=== PATIENT | male | born 1980 | race Caucasian/White ===

== ENCOUNTER 2020-11-28 08:06 | Outpatient (REF) | payer OTHER, SELFPAY ==
[2020-11-28 11:10] LABS: Alanine Aminotransferase 59 U/L (0-40); Anion Gap 12 (12-20); Blood Urea Nitrogen 13 mg/dL (9-16); Carbon Dioxide 26 mmol/L (22-29); Chloride 104 mmol/L (96-108); Estimated Glomerular Filt Rate > 60; Potassium 4.3 mmol/L (3.3-5.1); Sodium 138 mmol/L (135-145)
== END 2020-11-28 08:07 | disposition home or self-care (01) ==
LOC: HO.10HDL 08:06
PROVIDERS: Visit Provider Family Medicine
DX: I10 Essential (primary) hypertension (principal); K75.81 Nonalcoholic steatohepatitis (NASH)
CPT/HCPCS: 36415; 80051; 82565; 84460; 84520

== ENCOUNTER 2021-03-29 14:49 | Emergency (ER) | payer OTHER, SELFPAY ==
--- NOTE | 2021-03-29 | ECG_ITS ---
Test Reason : HIT LIGHTNING Blood Pressure : / mmHG Vent. Rate : 068 BPM Atrial Rate : 068 BPM P-R Int : 176 ms QRS Dur : 114 ms QT Int : 404 ms P-R-T Axes : 042 002 009 degrees QTc Int : 429 ms Normal sinus rhythm Cannot rule out Anterior infarct , age undetermined Abnormal ECG When compared with ECG of 03-SEP-2019 17:43, No significant change was found Referred By: Generic ED Physician Electronically Signed By:Baldomero Macario
[2021-03-29 15:03] VITALS: BP 139/93; PULSE 73; RESP 18; TEMP 36.5; O2SAT 96; BMI 33.7
[2021-03-29] MEDS: Ibuprofen 600 MG TABLET PO (15:36)
[2021-03-29 15:46] LABS: Hematocrit 43.5 % (42-52); Hemoglobin 15.2 g/dl (14.0-18.0); Mean Corpuscular HGB Conc 34.9 g/dl (31.0-36.0); Mean Corpuscular Hemoglobin 29.3 pg (27.0-33.0); Mean Corpuscular Volume 83.8 fL (80-98); Mean Platelet Volume 10.3 fL (9.4-12.4); Platelet Count 190 X10*3/uL (160-400); Red Blood Count 5.19 X10*6/uL (4.60-5.80); Red Cell Distribution Width 12.7 % (11.0-16.0); White Blood Count 7.3 X10*3/uL (4.8-10.8)
--- NOTE | 2021-03-29 15:47 | PC.NURSE ---
ekg was performed/documented but the red ekg marker on tracker continues to show red. pt also medicated with ibuprofen for pain.
[2021-03-29 16:16] LABS: Anion Gap 12 (12-20); Blood Urea Nitrogen 13 mg/dL (9-16); Calcium 9.3 mg/dL (8.4-10.2); Carbon Dioxide 25 mmol/L (22-29); Chloride 107 mmol/L (96-108); Creatinine Clr Calc Pharmacy 127.7; Estimated Glomerular Filt Rate > 60; Glucose Random 123 mg/dL (60-115); Potassium 3.8 mmol/L (3.3-5.1); Sodium 140 mmol/L (135-145)
--- NOTE | 2021-03-29 18:26 | PC.NURSE ---
pt stated to this nurse that he no longer wanted to wait to be seen and that he would go to his doctor, this nurse encouraged patient to stay but he did not wish to stay any longer.
== END 2021-03-29 19:10 | disposition left against medical advice (07) ==
PROVIDERS: Emergency Provider Emergency Medicine; PCP Family Medicine
DX: T75.09XA Other effects of lightning, initial encounter (principal); H53.8 Other visual disturbances; R51.9 Headache, unspecified; Y93.9 Activity, unspecified; Y92.821 Forest as the place of occurrence of the external cause; Y99.8 Other external cause status
CPT/HCPCS: 36415; 80048; 85027; 93005; 99283

== ENCOUNTER 2021-04-01 06:24 | Outpatient (REF) | payer OTHER, SELFPAY ==
[2021-04-07 01:37] LABS: Aldolase 6.3 U/L (<=8.1)
== END 2021-04-01 06:25 | disposition home or self-care (01) ==
LOC: HO.LAB 06:24
PROVIDERS: PCP Family Medicine; Visit Provider Family Medicine
DX: M79.10 Myalgia, unspecified site (principal)
CPT/HCPCS: 36415; 82085; 82550

== ENCOUNTER 2022-05-15 08:13 | Outpatient (REF) | payer OTHER, SELFPAY ==
[2022-05-15 09:55] LABS: Anion Gap 16 (12-20); Blood Urea Nitrogen 17 mg/dL (9-16); Carbon Dioxide 24 mmol/L (22-29); Chloride 108 mmol/L (96-108); Estimated Glomerular Filt Rate > 60; Potassium 4.8 mmol/L (3.3-5.1); Sodium 143 mmol/L (135-145)
== END 2022-05-15 08:14 | disposition home or self-care (01) ==
LOC: HO.LAB 08:13
PROVIDERS: PCP Family Medicine; Visit Provider Family Medicine
DX: I10 Essential (primary) hypertension (principal)
CPT/HCPCS: 36415; 80051; 82565; 84520

== ENCOUNTER 2023-02-12 07:03 | Outpatient (REF) | payer BC, SELFPAY ==
[2023-02-12 07:59] LABS: Alanine Aminotransferase 98 U/L (0-40); Anion Gap 12 (12-20); Aspartate Amino Transferase 39 U/L (5-37); Blood Urea Nitrogen 20 mg/dL (9-16); Carbon Dioxide 24 mmol/L (22-29); Chloride 109 mmol/L (96-108); Estimated Glomerular Filt Rate > 60; Potassium 4.3 mmol/L (3.3-5.1); Sodium 141 mmol/L (135-145)
== END 2023-02-12 07:04 | disposition home or self-care (01) ==
LOC: HO.LAB 07:03
PROVIDERS: PCP Family Medicine; Visit Provider Family Medicine
DX: I10 Essential (primary) hypertension (principal); K75.81 Nonalcoholic steatohepatitis (NASH)
CPT/HCPCS: 36415; 80051; 82565; 84450; 84460; 84520

== ENCOUNTER 2023-04-20 13:11 | Outpatient (REF) | payer BC, SELFPAY ==
[2023-04-20 13:47] LABS: IDNOW Serial# 08D9AD1C; Strep A Nucleic Acid Negative (Negative)
== END 2023-04-20 13:12 | disposition home or self-care (01) ==
LOC: HO.LNP 13:11
PROVIDERS: Visit Provider Family Medicine
DX: J02.9 Acute pharyngitis, unspecified (principal)
CPT/HCPCS: 87651

== ENCOUNTER 2023-04-21 02:16 | Emergency (ER) | payer BC, SELFPAY ==
[2023-04-21 02:36] VITALS: BP 176/117; PULSE 75; RESP 18; TEMP 37; O2SAT 96; BMI 35.2
--- NOTE | 2023-04-21 03:25 | ED_ITS ---
HPI - General Adult General Chief complaint: General Medical Stated complaint: trouble swallowing Time Seen by Provider: 04/21/23 03:24 Source: patient Mode of arrival: ambulatory Limitations: no limitations History of Present Illness HPI narrative: 42-year-old male who presents emergency department for evaluation of sore throat difficulty swallowing. Patient states that he has been sick for approximately 2 days. He states that he saw his PCP yesterday and had a negative rapid strep test. States he has been taking throat lozenges and throat spray with no relief his pain. He states that the pain is gotten significantly worse and is 10/10. He is having difficulty swallowing. He denied fever, chills, rhinorrhea, cough, nausea or vomiting. The patient did have his tonsils in you removed secondary to obstructive sleep apnea Related Data Previous Rx's Medication Instructions Recorded oxycodone 5 mg tablet 5 mg PO Q6H PRN pain #10 tabs 04/21/23 penicillin V potassium 500 mg 500 mg PO TID 10 days #30 tabs 04/21/23 tablet prednisone 20 mg tablet 60 mg PO DAILY 5 days #15 tabs 04/21/23 Allergies Allergy/AdvReac Type Severity Reaction Status Date / Time No Known Allergies Allergy Verified 04/21/23 02:43 [No Known Allergies*] Review of Systems Review of Systems: Yes all other systems are reviewed and are negative COUNTS INCLUDE 234 BEDS AT THE [facility] Past Medical History COUNTS INCLUDE 234 BEDS AT THE [facility] Narrative: Past medical history: Hypertension, GERD. Social history: He denies tobacco use. He occasionally drinks alcohol. He denies drug use. Medical History Diverticulitis Surgical History History of colostomy reversal Social History Social History Alcohol intake: current Alcohol intake frequency: holidays/special occasions only Smoked in Last 30 Days: No Use of substances other than those prescribed or required for medical reasons: No Advance Directives: No Advance Directives Information Provided: Yes Physical Exam ED Vital Signs: Vital Signs - 24 hr 04/21/23 02:36 Temperature 98.6 F Pulse Rate 75 Respiratory Rate 18 Blood Pressure 176/117 H Pulse Oximetry 96 Oxygen Delivery Method Room Air BMI result Body Mass Index 35.2 Vital signs did reveal an elevated blood pressure of 176/117, this is most likely caused by pain and his essential hypertension Exam: General: Awake, alert in no distress Head: Normocephalic, atraumatic EENT: PERRL, Lids normal, sclera normal, conjunctiva normal, nose normal , ears normal, throat posterior erythema, no exudate, patient has no uvula or tonsils Neck: Supple, no adenopathy, trachea midline and nontender Lung: breath sounds symmetric, no wheezing, rales or rhonchi Chest: symmetric movement, nontender Heart: regular rate and rhythm, normal S1, S2 no murmurs or rubs Abdomen: soft, non-tender, nondistended, normal bowel sounds Back: no vertebral tenderness, no CVAT Extremities: no deformities, moves all extremities symmetrically Skin: no rashes, no lesion, normal color and warmth Neuro: Awake, alert, oriented, normal speech, cranial nerves intact, moves all extremities symmetrically Psych: Pleasant, cooperative Medications Administered Discontinued Medications Generic Name Dose Route Start Last Admin Trade Name Oliverioq PRN Reason Stop Dose Admin Acetaminophen 975 mg 04/21/23 03:34 04/21/23 03:46 Acetaminophen 325 Mg Tablet PO 04/21/23 03:35 975 mg ONCE STA Administration Oxycodone HCl 5 mg 04/21/23 03:34 04/21/23 03:47 Oxycodone Hcl Immed Release 5 Mg Tablet PO 04/21/23 03:35 5 mg ONCE STA Administration Penicillin V Potassium 500 mg 04/21/23 03:34 04/21/23 03:47 Penicillin V Potassium 250 Mg Tablet PO 04/21/23 03:35 500 mg ONCE ONE Administration Prednisone 40 mg 04/21/23 03:34 04/21/23 03:47 Prednisone 20 Mg Tablet PO 04/21/23 03:35 40 mg ONCE ONE Administration Medical Decision Making Medical Decision Making [facility] Narrative: 42-year-old male who presents emergency department for evaluation of sore throat x2 days. The pain is got progressively worse to the point where he is having difficulty swallowing. The patient's pain was 10/10. He denied upper respiratory symptoms. Examination did reveal posterior erythema and bilateral anterior/jugular digastric adenopathy with tenderness. Patient's presentation is consistent with acute pharyngitis, I will treat the patient with penicillin 500 mg 3 times a day for 10 days, prednisone 40 mg once a day for 5 days, Tyl enol and oxycodone. He was given a 1st dose of these medications here in the emergency department. Was given prescriptions, printed and verbal instructions and discharged home Differential Diagnosis Differential diagnosis includes was not limited to acute viral pharyngitis, acute bacterial pharyngitis Prescription Management I considered prescription management with: Pain Medication and Antibiotic Chronic Conditions Patient?s care impacted by: Hypertension Discharge Plan Discharge Clinical Impression: Pharyngitis Qualifiers: Pharyngitis/tonsillitis etiology: unspecified etiology Qualified Code(s): J02.9 - Acute pharyngitis, unspecified Patient Disposition: Home, Self-Care Instructions: Pharyngitis (ED) Additional Instructions: Take penicillin 500 mg pills, 1 pill 3 times a day for 10 days. Finish the entire antibiotic prescription. Take prednisone 20 mg pills, 3 pills once a day for 5 days. While you are taking prednisone, do not take any NSAIDs (Motrin, Advil, ibuprofen, Aleve, naproxen). Take Tylenol (acetaminophen) 500 mg pills, 2 pills every 4-6 hours as needed for pain. For pain not relieved by prednisone or Tylenol take oxycodone 5 mg pills, 1 pill every 4 hours as needed for pain. Do not drive or work while taking this medication since they can cause sleepiness. Oxycodone is a narcotic medication that can be addicting. If you are concerned about addiction you can ask the pharmacist for less pills or do not get this prescription filled. Follow-up with your doctor in 2 days. Please return to the emergency department if your symptoms get worse or if you develop any symptoms that are concerning to you. Prescriptions: New penicillin V potassium 500 mg tablet 500 mg PO TID 10 Days Qty: 30 0RF oxycodone 5 mg tablet 5 mg PO Q6H PRN (Reason: pain) Qty: 10 0RF Rx Instructions: Patient may request partial refill; Partial Fill upon patient request. prednisone 20 mg tablet 60 mg PO DAILY 5 Days Qty: 15 0RF
[2023-04-21] MEDS: Acetaminophen 325 MG TABLET 975 MG PO (03:46)
[2023-04-21] MEDS: predniSONE 20 MG TABLET 40 MG PO (03:47)
[2023-04-21] MEDS: oxyCODONE HCl Immed Release 5 MG TABLET PO (03:47)
[2023-04-21] MEDS: Penicillin V Potassium 250 MG TABLET 500 MG PO (03:47)
[2023-04-21 04:00] VITALS: BP 143/77; PULSE 63; RESP 16; TEMP 37.1; O2SAT 98
== END 2023-04-21 04:20 | disposition home or self-care (01) ==
PROVIDERS: Emergency Provider Emergency Medicine Emergency Medical Services
DX: J02.9 Acute pharyngitis, unspecified (principal); R13.10 Dysphagia, unspecified
CPT/HCPCS: 99283; 99284

== ENCOUNTER 2023-08-13 07:14 | Outpatient (REF) | payer BC, SELFPAY ==
[2023-08-13 07:47] LABS: MANUAL DIFF FLAG NO
[2023-08-13 08:15] LABS: Basophils Absolute Auto 0.1 X10*3/uL (0.0-0.2); Basophils Percent Auto 1.1 % (0-2); Eosinophils Absolute Auto 0.2 X10*3/uL (0.0-0.4); Eosinophils Percent Auto 3.1 % (0-4); Hematocrit 49.8 % (42.0-52.0); Hemoglobin 16.9 g/dl (14.0-18.0); Imm Gran Abs Auto 0.04 X10*3/uL (0.00-0.03); Imm Gran Pct Auto 0.6 % (0.0-0.4); Lymphocytes Absolute Auto 1.8 X10*3/uL (1.2-4.9); Lymphocytes Percent Auto 29.2 % (20-40); Mean Corpuscular HGB Conc 33.9 g/dl (31.0-36.0); Mean Corpuscular Hemoglobin 29.1 pg (27.0-33.0); Mean Corpuscular Volume 85.9 fL (80.0-98.0); Mean Platelet Volume 10.8 fL (9.4-12.4); Monocytes Absolute Auto 0.6 X10*3/uL (0.1-1.2); Monocytes Percent Auto 9.4 % (2-11); Neutrophils Absolute Auto 3.5 x10*3/uL (2.0-8.3); Neutrophils Percent Auto 56.6 % (45-73); Platelet Count 217 X10*3/uL (160-400); Red Cell Distribution Width 12.6 % (11.0-16.0); White Blood Count 6.2 X10*3/uL (4.8-10.8)
[2023-08-13 09:02] LABS: Iron 70 mcg/dL (45-160); Percent Iron Saturation 27 % (15-50); Total Iron Binding Capacity 262 mcg/dL (228-428); Unsaturated Iron Binding 192 ug/dL
[2023-08-13 11:28] LABS: Ferritin 275 ng/mL (20-250)
== END 2023-08-13 07:15 | disposition home or self-care (01) ==
LOC: HO.LAB 07:14
PROVIDERS: PCP Family Medicine; Visit Provider Family Medicine
DX: E83.110 Hereditary hemochromatosis (principal)
CPT/HCPCS: 36415; 82728; 83540; 85025

== ENCOUNTER 2024-01-02 16:25 | Outpatient (AMB) | payer BC, SELFPAY ==
--- NOTE | 2024-01-02 16:26 | A.OFFVIS_ITS ---
Vital Signs 01/02/24 16:27 Height 5 ft 10 in Intake Visit Reasons: Hernia Intake Note: This patient presents for an assessment for a hernia. Pt c/o; reports pain. 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 He has a history of perforated diverticulitis and had resection for this along with reversal in 2019 He had been doing well but noted this reducible mass along with pain on the midline incision a little to the right last week. This had persisted so he went to his primary care physician and was sent to me today He denies GI complaints. He has good oral intake and bowel movements. He denies any nausea or vomiting. He denies any fever or chills. He does state that the pain to be worse when he is walking or getting out of bed. [facility], [facility] Medical History Incisional hernia Diverticulitis Surgical History History of colostomy reversal Social History Alcohol intake: current Alcohol intake frequency: holidays/special occasions only Review of Systems Const Denies chills and Denies fever(s) Card Denies chest pain, Denies dyspnea and Denies dyspnea on exertion Resp Denies cough, Denies dyspnea and Denies dyspnea on exertion GI Denies hematochezia and Denies change in bowel habits Denies hematuria and Denies difficulty urinating Musc Denies back pain and Denies limited range of motion Neuro Denies focal weakness and Denies convulsions Psych Denies depression and Denies mood swings Physical Exam Const Other: Ambulating General: comfortable and no acute distress Orientation/consciousness: patient oriented x3 Neck Neck: Yes no lymphadenopathy Resp Auscultation: clear to auscultation bilaterally Cardio Rhythm: regular rhythm GI Other: Reducible hernia on the midline incision to the right of the midline also tender to touch, hernia defect difficultl to define but probably about 4 cm Palpation (GI): Soft to palpation, nontender and no guarding Neuro General: patient oriented x3 Assessment & Plan Assessment & Plan (1) Incisional hernia: Code(s): K43.2 - Incisional hernia without obstruction or gangrene Category: Medical Plan: He is what appears to be a reducible incisional hernia on his laparotomy incision. This is tender to touch. He denies any GI complaints or signs of incarceration I explained to him that we will schedule him for repair of this incisional hernia as this is fairly symptomatic. I discussed the technique of repair with possible mesh. I reviewed the risks including but not limited to bleeding, infections, bowel injury, recurrence, as well as the benefits and alternatives. We will also get a CT scan done prior to his surgery so we can clearly define the hernia defect and dimension. He does understand that if he develops signs of incarceration or strangulation, he should go to the emergency room as he may need more urgent repair. This includes extreme pain, fever, chills with nausea and vomiting and inability to have any oral intake. He understands that he is comfortable with the plan. Orders: Orders CT abdomen pelvis wo IV con 01/02/24 K43.2 - Incisional hernia without obstruction or gangrene Medications: New tramadol 50 mg PO TID PRN 20 tabs 0RF pain Coding Level of Care Code New Pt Level 3 (64978) Diagnoses Incisional hernia K43.2
== END 2024-01-02 16:36 | disposition home or self-care (01) ==
PROVIDERS: PCP Family Medicine; Visit Provider Surgery
DX: K43.2 Incisional hernia without obstruction or gangrene (principal)
CPT/HCPCS: 99203

== ENCOUNTER → 2024-01-02 16:25 | Outpatient (BNVA) | payer BC, SELFPAY | PROVIDERS: PCP Family Medicine; Visit Provider Surgery ==

== ENCOUNTER 2024-01-09 13:07 | Outpatient (REF) | payer BC, SELFPAY ==
--- NOTE | ~2024-01-09 | CT_ITS ---
EXAMINATION: CT ABDOMEN AND PELVIS WITHOUT CONTRAST CLINICAL INFORMATION: Incisional hernia without obstruction or gangrene COMPARISON: CT scan abdomen pelvis January 14, 2020 TECHNIQUE: Multidetector volumetric imaging was performed from the superior aspect of the liver through the pubic symphysis. Sagittal and coronal reformatted images were obtained on the technologist's workstation. This CT examination was performed using dose optimization techniques as appropriate, variously including the following: *Automated exposure control *Adjustment of mA and/or kV according to patient size (this includes techniques or standardized protocols for targeted exams where dose is matched to indication/reason for exam; i.e. extremities or head) *Use of iterative reconstruction technique DLP: 685 mGy-cm FINDINGS: LUNG BASES: The visualized lung bases are unremarkable. LIVER, GALLBLADDER, AND BILIARY TREE: Diffuse low attenuation of liver parenchyma due to fatty change. No focal liver lesion or intrahepatic bile duct dilatation. The gallbladder is unremarkable with no evidence of radiopaque gallstones, gallbladder wall thickening, or obvious pericholecystic inflammatory changes. PANCREAS: Unremarkable. SPLEEN: Unremarkable. ADRENAL GLANDS: Unremarkable. KIDNEYS AND URETERS: The kidneys are normal in size, shape, and attenuation. No hydronephrosis, hydroureter, or calculi seen. No perinephric stranding. BLADDER: Unremarkable. GASTROINTESTINAL TRACT: Surgical anastomosis at the small bowel right lower quadrant. Surgical anastomosis of the distal sigmoid. Status post appendectomy. No acute abnormality of the bowel. No bowel obstruction. No bowel wall thickening or edema Moderate volume of stool in the colon. ABDOMINAL WALL: Small bulge of the fascia at the umbilicus without hernia. No incisional hernia. Abdominal wall intact. No inflammation. LYMPH NODES: Normal. VASCULAR: Unremarkable. PELVIC VISCERA: Unremarkable. OSSEOUS STRUCTURES: Multilevel degenerative spondylosis spine. No acute osseous abnormality. CT/CT abdomen pelvis wo IV con IMPRESSION: 1. No acute abnormality CT scan abdomen pelvis. 2. Diffuse fatty change of liver. Fleischner guidelines were followed.
== END 2024-01-09 13:08 | disposition home or self-care (01) ==
LOC: HO.CT 13:07
PROVIDERS: Visit Provider Surgery
DX: K43.2 Incisional hernia without obstruction or gangrene (principal)
CPT/HCPCS: 74176

== ENCOUNTER 2024-01-14 07:10 | Outpatient (REF) | payer BC, SELFPAY ==
[2024-01-14 08:18] LABS: Alanine Aminotransferase 66 U/L (0-40); Anion Gap 14 (12-20); Aspartate Amino Transferase 25 U/L (5-37); Blood Urea Nitrogen 14 mg/dL (9-16); Carbon Dioxide 24 mmol/L (22-29); Chloride 106 mmol/L (96-108); Estimated Glomerular Filt Rate > 60; Potassium 4.2 mmol/L (3.3-5.1); Sodium 140 mmol/L (135-145)
== END 2024-01-14 07:11 | disposition home or self-care (01) ==
LOC: HO.LAB 07:10
PROVIDERS: PCP Family Medicine; Visit Provider Family Medicine
DX: I10 Essential (primary) hypertension (principal); K75.81 Nonalcoholic steatohepatitis (NASH)
CPT/HCPCS: 36415; 80051; 82565; 84450; 84460; 84520

== ENCOUNTER 2024-01-20 10:13 | Day surgery (SDC) | payer BC, SELFPAY ==
[2024-01-20] VITALS (16 sets, daily range): BP systolic 126–147; BP diastolic 75–103; PULSE 60–74; RESP 16–18; TEMP 36.4–37.4; O2SAT 94–98; BMI 34.4
[2024-01-20] MEDS: Lactated Ringers 1,000 ML 100 ML IVCONT (11:27)
--- NOTE | 2024-01-20 12:35 | HO.ANESPROP2 ---
Documented by User: Brandie Andersen NP 01/18/24 14:40 HPI - Anesthesia Eval Consult details Narrative: 43yo M for Repair Hernia Incisional Reduciblewith possible mesh hx colostomy s/p reversal PMFSH Active Problems Active Problems: All Active Problems (Updated 01/02/24 @ 16:30 by Justino Tristan MD) Incisional hernia (Acute) Past Medical History Medical History Incisional hernia Diverticulitis Surgical History Surgical History History of colostomy reversal Social History Social History Alcohol intake: current Alcohol intake frequency: holidays/special occasions only Patient Tobacco Use Status: Never used Tobacco Use of substances other than those prescribed or required for medical reasons: No Are you DNR?: No Advance Directives: No Advance Directives Information Provided: Yes Meds Allergies Allergy/AdvReac Type Severity Reaction Status Date / Time No Known Allergies Allergy Verified 01/20/24 11:09 [No Known Allergies*] Home Medications ?Medication ?Instructions ?Recorded ?Confirmed ?Last Taken ?Type lisinopril 20 mg tablet 20 mg PO DAILY 01/19/24 01/20/24 01/19/24 History Exam Pertinent Lab Results Pertinent Lab Results: Laboratory Tests 01/14/24 07:22 Sodium 140 Potassium 4.2 Chloride 106 Carbon Dioxide 24 BUN 14 Creatinine 0.89 Assessment and Plan Assessment Anesthesia Assessment: Chart Reviewed Documented by User: Josie Burns DO 01/20/24 12:42 PMFSH Past Medical History Medical History Incisional hernia Diverticulitis Family History Family history of problems with anesthesia: No Surgical History Surgical History History of colostomy reversal History of Problems with Anesthesia: No Social History Social History Alcohol intake: current Alcohol intake frequency: holidays/special occasions only Patient Tobacco Use Status: Never used Tobacco Use of substances other than those prescribed or required for medical reasons: No Are you DNR?: No Advance Directives: No Advance Directives Information Provided: Yes Meds Allergies Allergy/AdvReac Type Severity Reaction Status Date / Time No Known Allergies Allergy Verified 01/20/24 11:09 [No Known Allergies*] Home Medications ?Medication ?Instructions ?Recorded ?Confirmed ?Last Taken ?Type lisinopril 20 mg tablet 20 mg PO DAILY 01/19/24 01/20/24 01/19/24 History Exam Exam Date and Time: January 20, 2024 1235 Height,Weight and Vital Signs: Height 5 ft 10 in Weight 108.862 kg Vital Signs Temperature 97.9 F 01/20/24 11:26 Pulse Rate 65 01/20/24 11:26 Respiratory Rate 16 01/20/24 11:26 Blood Pressure 147/103 H 01/20/24 11:26 Pulse Oximetry 95 01/20/24 11:26 Temperature 97.9 F 01/20/24 11:26 Pulse Rate 65 01/20/24 11:26 Respiratory Rate 16 01/20/24 11:26 Blood Pressure 147/103 H 01/20/24 11:26 Pulse Oximetry 95 01/20/24 11:26 Airway Mallampati Class: II TM Dist: >3cm Neck ROM: Full Loose/Missing/Broken Teeth: No (patient denies any loose or broken teeth) Heart: S1S2 Lungs: CTAB Assessment and Plan Assessment Anesthesia Assessment: Anesthesia Plan Discussed and Chart Reviewed Final Anesthetic Review Family History of Problems with Anesthesia: No History of Problems with Anesthesia: No NPO: Yes ASA Class: II Final Preanesthetic Review: No Changes in Pt Med Stat, Meds/Allgs Chart Reviewed, Consent Obtained/Reviewed and Anes Risks/Benef Reviewed Patient Risk: Low Procedure Risk: Low Anesthetic Plan Anesthetic Plan: GA and Agree w/ Assess. and Plan Disposition: Standard PACU
--- NOTE | 2024-01-20 12:58 | MHC.SHP ---
Pre-Procedural Eval Section A - 24 Hr Update-Section A only Date of Service: 01/20/24 The patient is an INPATIENT: No Changes since office visit: No Cold of Flu in the past 2 weeks, No New Medical Problems, No Changes in Medication and No Patient answered all questions The patient has been examined within 24 hours of the surgical procedure. The History & Physical has been completed within 30 days and I have reviewed it.: Yes Section B - Complete if H&P > 30 days Chief Complaint: Incisional hernia without obstruction or gangrene Allergies: Allergies Allergy/AdvReac Type Severity Reaction Status Date / Time No Known Allergies Allergy Verified 01/20/24 11:09 [No Known Allergies*] Plan I have reviewed the history and physical and performed a pertinent physical examination on my patient. No changes have occurred unless specified. Time Spent With Patient Time: Total time managing care of this patient today ____ minutes.
--- NOTE | 2024-01-20 14:05 | W.PM.OPN ---
Operative Note Operative Note Date of Service: 01/20/24 Narrative: Preop diagnosis: Incisional hernia Postop diagnosis: Incisional hernia, 1 cm in size Procedure: Repair of incisional hernia with Ventralex mesh Surgeon: Justino Tristan MD [employer] account assistant: TOSIN Iglesias The patient is a 43-year-old male with a history of perforated diverticulitis and had a previous sigmoid resection with anastomosis and diverting loop ileostomy and eventually closure of the ileostomy who was seen in the office because of a hernia on the area just below the umbilicus near the previous incision. She understood the technique of the planned procedure of repair and he was aware of the risks, benefits, alternatives. The hernia was palpable easily with Valsalva. Review of his CT scan shows that there was a fascia defect on this area although the report does not mention this. The patient was brought to the operating room placed supine under general anesthesia via laryngeal mask airway. The abdomen was prepped and draped usual sterile fashion. A surgical time-out was done. The patient received cefazolin 2 g IV preoperatively. I infiltrated the planned line of incision with lidocaine 1%. I made a longitudinal incision using blade number 15 and this carried down through the full-thickness of the skin subcutaneous fat. I then gently use blunt dissection through the subcutaneous fat down to the fascial layer until was able to visualize the hernia sac. I was gently dissected the sac with scissors to define this through the defect I actually opened up the sac and was able to define the entire defect.The hernia contents were all fat and no bowel was inlvolved. The hernia was about a 1 cm sized defect and there were no adhesions surrounding this. I lifted the fascia with a Cathy clamp. I then positioned a small-sized Ventralex mesh and this was flattened under the fascia. I secured the Prolene straps of the Ventralex mesh with Prolene 2 sutures to the fascial edge. I then closed the fascial defect with a [id number] Maxon 1 stitch. The subcutaneous layer was reapposed with Polysorb 3-0 simple sutures. Skin closure was achieved with Polysorb 4-0 subcuticular running sutures. The area was infiltrated with Marcaine 0.5% for postop analgesia. Dressings were applied and the procedure was completed. The patient tolerated the procedure well. There were no immediate complications. Initial and final counts of sponges and instruments were correct. Estimated blood loss was about 10 cc The patient was extubated without difficulty and transferred to the recovery room with stable vital signs.
[2024-01-20] MEDS: fentaNYL citrate/PF 100 MCG/2 ML VIAL 50 MCG IVPUSH ×3 (15:25→16:25)
[2024-01-20] MEDS: oxyCODONE HCl Immed Release 5 MG TABLET PO (15:30)
== END 2024-01-20 16:58 | disposition home or self-care (01) ==
PROVIDERS: PCP Family Medicine; Visit Provider Surgery
PROC: (CPT 49591; principal; 2024-01-20 12:50)
DX: K43.2 Incisional hernia without obstruction or gangrene (principal); Z87.19 Personal history of other diseases of the digestive system; Z90.49 Acquired absence of other specified parts of digestive tract; Z98.0 Intestinal bypass and anastomosis status
CPT/HCPCS: 49591; C1781; J0690; J1100; J1170; J2250; J2405; J2704; J2795; J3010

== ENCOUNTER → 2024-01-20 10:13 | Outpatient (BNV) | payer BC, SELFPAY | PROVIDERS: PCP Family Medicine; Visit Provider Surgery | DX: K43.2 Incisional hernia without obstruction or gangrene (principal) | CPT/HCPCS: 49591 ==

== ENCOUNTER 2024-02-02 11:31 | Outpatient (AMB) | payer BC, SELFPAY ==
--- NOTE | 2024-02-02 11:33 | MHC.OFFVIS ---
Intake Visit Reasons: S/P incisional hernia w/poss mesh Intake Note: This patient presents for a post-op assessment status post incisional hernia with possible mesh. Patient c/o; reports no complaints at this time pertaining to surgery. Supervisor Typesetting Required: No Accompanied by: Self / Same As Patient Allergies No Known Allergies [No Known Allergies*] Allergy (Verified 02/02/24 11:37) HPI HPI S/P incisional hernia w/poss mesh: Details: He underwent repair of an incisional hernia with mesh last January 20, 2024. He tolerated the procedure well. He currently denies significant complaints. He says he feels well overall. [facility] Medical History Incisional hernia Diverticulitis Surgical History History of incisional hernia repair (~01/20/24) History of colostomy reversal Social History Alcohol intake: current Alcohol intake frequency: holidays/special occasions only Patient Tobacco Use Status: Never used Tobacco Review of Systems Const Denies chills and Denies fever(s) Card Denies chest pain, Denies dyspnea and Denies dyspnea on exertion Resp Denies cough, Denies dyspnea and Denies dyspnea on exertion GI Denies hematochezia and Denies change in bowel habits Denies hematuria and Denies difficulty urinating Musc Denies back pain and Denies limited range of motion Neuro Denies focal weakness and Denies convulsions Psych Denies depression and Denies mood swings Physical Exam Const General: comfortable and no acute distress GI Other: Incision is well healed, not infected, repair intact Palpation (GI): Soft to palpation, not firm, nontender and Guarding due to palpation present (GI) Assessment & Plan Assessment & Plan (1) Incisional hernia: Code(s): K43.2 - Incisional hernia without obstruction or gangrene Category: Medical Plan: Status post repair with mesh. He is doing very well. His incision is well healed and repairs intact. He was advised to avoid any lifting more than 20 lb for a full month. He can follow up with me on a p.r.n. basis. Coding Level of Care Code Global (29787) Diagnoses Incisional hernia K43.2
== END 2024-02-02 11:41 | disposition home or self-care (01) ==
PROVIDERS: PCP Family Medicine; Visit Provider Surgery
DX: K43.2 Incisional hernia without obstruction or gangrene (principal)
CPT/HCPCS: 99212

== ENCOUNTER → 2024-02-02 11:31 | Outpatient (BNVA) | payer BC, SELFPAY | PROVIDERS: PCP Family Medicine; Visit Provider Surgery ==

== ENCOUNTER 2024-06-22 07:39 | Outpatient (REF) | payer BC, SELFPAY ==
[2024-06-22 08:39] LABS: Alanine Aminotransferase 76 U/L (0-40); Anion Gap 12 (12-20); Aspartate Amino Transferase 33 U/L (5-37); Blood Urea Nitrogen 12 mg/dL (9-16); Carbon Dioxide 26 mmol/L (22-29); Chloride 107 mmol/L (96-108); Estimated Glomerular Filt Rate > 60; Potassium 4.3 mmol/L (3.3-5.1); Sodium 141 mmol/L (135-145)
== END 2024-06-22 07:40 | disposition home or self-care (01) ==
LOC: HO.LAB 07:39
PROVIDERS: PCP Family Medicine; Visit Provider Family Medicine
DX: I10 Essential (primary) hypertension (principal)
CPT/HCPCS: 36415; 80051; 82565; 84450; 84460; 84520

== ENCOUNTER 2025-06-10 15:26 | Outpatient (AMB) | payer BC, SELFPAY ==
--- NOTE | 2025-06-10 15:47 | A.OFFVIS_ITS ---
Vital Signs 06/10/25 15:51 Height 5 ft 10 in Weight 242 lb BMI 34.7 Intake Visit Reasons: colon screening Intake Note: This patient presents for five year recall colonoscopy screening. Pt c/o; reports no complaints. Rubber Heel And Sole Press Tender Required: No Accompanied by: Self / Same As Patient Allergies No Known Allergies (No Known Allergies*) Allergy (Verified 06/10/25 15:52) HPI HPI colon screening: Details: 44-year-old male referred for his 1st screening colonoscopy. He actually had a colonoscopy in 2018 but this was for examination of the entire colon for his diverticular disease prior to reversing his diverting loop ileostomy. He denies any GI complaints. He denies any family history of colon cancer. [facility] Medical History (Updated 06/10/25 @ 16:00 by Justino Tristan MD) Colon cancer screening Incisional hernia Diverticulitis Surgical History History of incisional hernia repair (~01/20/24) History of colostomy reversal Social History Alcohol intake: current Alcohol intake frequency: holidays/special occasions only Patient Tobacco Use Status: Never used Tobacco Review of Systems Const Denies chills and Denies fever(s) Card Denies chest pain, Denies dyspnea and Denies dyspnea on exertion Resp Denies cough, Denies dyspnea and Denies dyspnea on exertion GI Denies hematochezia and Denies change in bowel habits Denies hematuria and Denies difficulty urinating Musc Denies back pain and Denies limited range of motion Neuro Denies focal weakness and Denies convulsions Psych Denies depression and Denies mood swings Physical Exam Vital Signs: BMI result Body Mass Index 34.7 Const General: comfortable and no acute distress Orientation/consciousness: patient oriented x3 Neck Neck: Yes no lymphadenopathy Resp Auscultation: clear to auscultation bilaterally Cardio Rhythm: regular rhythm GI Palpation (GI): Soft to palpation, nontender and no guarding Neuro General: patient oriented x3 Assessment & Plan Assessment & Plan (1) Colon cancer screening: Code(s): Z12.11 - Encounter for screening for malignant neoplasm of colon Category: Medical Plan: He is here for his screening colonoscopy. I had done his colonoscopy in 2018 for his diverticular disease He denies any family history of colon cancer. He understands the technique of colonoscopy if he is aware of the risks including but not limited to bleeding, perforation, as well as the benefits, and alternatives and wants to proceed. Coding Level of Care Code Est Pt Level 3 (28018) Diagnoses Colon cancer screening Z12.11
[2025-06-10 15:51] VITALS: BMI 34.7
--- OUTSIDE RECORDS SUMMARY | 2025-06-10 17:26 | XMS_ITS | Patient Health Record ---
Author Organization [facility] Address [address] [place] [address] Care Team Providers Care Case Consultant Name Role Phone Rubens Duncan Jr [phone] Reason For Referral No Information Plan Of Treatment No Information
== END 2025-06-10 16:05 | disposition home or self-care (01) ==
LOC: HO.HGS 15:27
PROVIDERS: PCP Internal Medicine; Visit Provider Surgery
DX: Z12.11 Encounter for screening for malignant neoplasm of colon (principal)
CPT/HCPCS: 99213

== ENCOUNTER 2025-06-19 15:48 | Outpatient (REF) | payer BC, SELFPAY ==
[2025-06-19 18:00] LABS: Hematocrit 47.4 % (42.0-52.0); Hemoglobin 16.3 g/dl (14.0-18.0); Mean Corpuscular HGB Conc 34.4 g/dl (31.0-36.0); Mean Corpuscular Hemoglobin 29.2 pg (27.0-33.0); Mean Corpuscular Volume 84.9 fL (80.0-98.0); NRBC Abs Auto 0.000 X10*3/uL (0.0-0.012); NRBC Pct Auto 0.0 /100WBC (0.0-0.2); Platelet Count 232 X10*3/uL (160-400); Red Blood Count 5.58 X10*6/uL (4.60-5.80); White Blood Count 6.7 X10*3/uL (4.8-10.8)
[2025-06-19 19:19] LABS: Alanine Aminotransferase 66 U/L (0-40); Albumin Level 5.1 g/dL (3.5-5.0); Alkaline Phosphatase 78 U/L (39-117); Anion Gap 12 (12-20); Aspartate Amino Transferase 31 U/L (5-37); Blood Urea Nitrogen 13 mg/dL (9-16); Calcium 10.0 mg/dL (8.4-10.2); Carbon Dioxide 26 mmol/L (22-29); Chloride 106 mmol/L (96-108); Cholesterol 183 mg/dL (<200); Estimated Glomerular Filt Rate > 60; HDL Cholesterol 36 mg/dL (>40); Potassium 4.1 mmol/L (3.3-5.1); Sodium 140 mmol/L (135-145); Total Protein 7.8 g/dL (6.5-8.0); Triglycerides 212 mg/dL (<150)
== END 2025-06-19 15:49 | disposition home or self-care (01) ==
LOC: HO.LAB 15:48
PROVIDERS: PCP Physician Assistant Medical; Visit Provider Physician Assistant Medical
DX: Z00.00 Encounter for general adult medical examination without abnormal findings (principal); Z13.220 Encounter for screening for lipoid disorders; I10 Essential (primary) hypertension; E66.9 Obesity, unspecified; K21.9 Gastro-esophageal reflux disease without esophagitis; Z68.35 Body mass index [BMI] 35.0-35.9, adult
CPT/HCPCS: 36415; 80053; 80061; 82306; 84443; 85027; 96127

== ENCOUNTER 2025-06-19 15:48 | Outpatient (AMB) | payer BC, SELFPAY ==
[2025-06-19 08:43] VITALS: BP 130/84; PULSE 57; TEMP 36.3; O2SAT 96; BMI 35.7
--- NOTE | 2025-06-19 08:43 | MHC.PC.OV ---
Vital Signs 06/19/25 08:43 Height 5 ft 10 in Weight 249 lb BMI 35.7 BP 130/84 Blood Pressure Location Lt brachial Position Sitting Pulse 57 Pulse Source Pulse Oximeter Temp 97.3 F Temp Source Temporal Artery Scan Pulse Oximetry (%) 96 Oxygen Delivery Method Room Air Intake Visit Reasons: 4 MO F/UP - BRITTANY PT - GILDA CBARERA Game Developer Required: No Accompanied by: Self / Same As Patient Allergies No Known Allergies (No Known Allergies*) Allergy (Verified 06/19/25 08:43) Medication List - Last Reconciled 06/20/25 by TOSIN Rodriguez lisinopril 10 mg PO DAILY multivitamin 1 tab PO DAILY omeprazole 20 mg PO DAILY Tobacco use date assessed: 06/19/25 Dental Screening Dental Screen Date: 06/19/25 Did you have a dental visit in the last 12 months?: Yes Did you have a dental problem in the last 6 months where you did not have access to dental care?: No HPI HPI Comments History of Present Illness Details The patient is a 44-year-old male with HTN presenting to establish care and to follow up hypertension management and preventative care. In 2018, the patient experienced a perforation of the diverticulitis, which required emergency surgery and a 17-day hospitalization. An ileostomy was performed, followed by a reversal procedure. The patient is currently preparing for a five-year follow-up colonoscopy. The patient underwent a hernia repair for an incisional hernia resulting from the previous surgery, which was completed in January 2024. The patient has a history of hypertension and is currently taking lisinopril 10 mg, having reduced from 20 mg due to side effects of excessive sweating. Blood pressure readings at home have been in the 120s/70s to 80s range, which is within the acceptable limits of the new guidelines. Patient's BP today was 130/84. The patient also reports taking Prilosec OTC daily for gastroesophageal reflux disease. He would like an Rx. The patient has a history of obstructive sleep apnea, for which he underwent surgery approximately 20 years ago, resulting in significant improvement. He is scheduled for Colonscopy on 07/02/25 [facility] Medical History (Updated 06/20/25 @ 18:21 by TOSIN Rodriguez) Colon cancer screening Diverticulitis GERD without esophagitis Health care maintenance Hypertension Incisional hernia Obesity (BMI 35.0-39.9 without comorbidity) Surgical History History of colostomy reversal History of incisional hernia repair (~01/20/24) Family History (Updated 06/19/25 @ 16:10 by Sydney Argueta MA) Mother No problems noted. Father No problems noted. Social History Housing: House Alcohol intake: current Alcohol intake frequency: holidays/special occasions only Patient Tobacco Use Status: Current everyday Tobacco user (Sometimes pt smoke cigarette) e-Cigarette/Vaping Use: Currently Using service: No Current occupational status: employed Cognitive needs: No Hearing needs: No Vision needs: No Questionnaire PHQ-9 Over the last 2 weeks, how often have you been bothered by any of the following problems? 1. Little interest or pleasure in doing things: not at all 2. Feeling down, depressed, or hopeless: not at all 3. Trouble falling or staying asleep, or sleeping too much: not at all 4. Feeling tired or having little energy: not at all 5. Poor appetite or overeating: not at all 6. Feeling bad about yourself - or that you are a failure or have let yourself or your family down: not at all 7. Trouble concentrating on things, such as reading the newspaper or watching television: not at all 8. Moving or speaking so slowly that other people could have noticed. Or the opposite - being so fidgety or restless that you have been moving around a lot more than usual: not at all 9. Thoughts that you would be better off or of hurting yourself in some way: not at all Total score: 0 Depression Screening Interpretation: Negative Depression Screening Done: Yes Source: Developed by Drs. Rai Flores, Yoly Weldon, Raudel Lechuga and colleagues, with an educational jojo from [employer]. Thrive Questionnaire Date Thrive assessed: 06/19/25 I am a: Patient Within the past 12 months, did the food you bought not last and you didn't have the money to get more?: Never true Within the past 12 months, did you worry whether your food would run out before you got money to buy more?: Never true Do you have trouble paying for medicines?: No Do you have trouble getting transportation to medical appointments?: No Do you have trouble paying your heating and electricity bill?: No Do you have trouble taking care of your child, family member or friend?: No Do you have trouble with day-to-day activities such as bathing, preparing meals, shopping, managing finances, etc.?: No Are you currently unemployed and looking for a job?: No Are you interested in more education?: No THRIVE Score: 0 AUDIT C Alcohol Use Questionnaire (AUDIT-C) 1. How often do you have a drink containing alcohol?: Monthly or less 2. How many drinks containing alcohol do you have on a typical day when you are drinking?: 1 or 2 3. How often do you have six or more drinks on one occasion?: Less than monthly Total Score: 2 CARINA-7 AMB Questionnaire CARINA-7 Date CARINA - 7 assessed: 06/19/25 Feeling nervous, anxious, or on edge: 0 = Not at all Not being able to stop or control worryin = Not at all Worrying too much about different things: 0 = Not at all Trouble relaxin = Not at all Being so restless that it is hard to sit still: 0 = Not at all Becoming easily annoyed or irritable: 0 = Not at all Feeling afraid as if something awful might happen: 0 = Not at all Total CARINA-7 score (0-4 normal; 5-9 mild; 10-14 moderate; 15-21 severe): 0 Source: Developed by Drs. Rai Flores, Yoly Weldon, Raudel Lechuga and colleagues, with an educational jojo from [employer]. Review of Systems Const Details: CONSTITUTIONAL Negative HEAD/NECK Negative EAR/NOSE/MOUTH/THROAT Denies vision or hearing problems RESPIRATORY Denies dyspnea, cough CARDIOVASCULAR Denies chest pain GASTROINTESTINAL Heartburn controlled Denies constipation, diarrhea MUSCULOSKELETAL Denies back pain, joint pain NEUROLOGICAL Negative PSYCHIATRIC Negative Physical exam (Primary Care) Vital Signs: Last Vital Signs Temp 97.3 F 06/19/25 08:43 Pulse 57 06/19/25 08:43 BP 130/84 06/19/25 08:43 Pulse Ox 96 06/19/25 08:43 Oxygen Delivery Method Room Air 06/19/25 08:43 BMI result Body Mass Index 35.7 GENERAL Well developed, obese, in no apparent distress HEENT Head-Normocephalic Eyes- PERRLA, EOMI, Conjuctiva clear, lids WNL Ears- Canals clear, TMs WNL Mouth/Throat-No lesions, no erythema, no exudate Neck- Supple, No lymphadenopathy, thyroid WNL RESPIRATORY Normal I:E, Clear to auscultation CARDIOVASCULAR Regular, rate and rhythm, No murmurs or rubs GASTROINTESTINAL Soft, nontender, normal bowel sounds, no masses MUSCULOSKELETAL Back- nontender Joints- no pain swelling or deformity NEUROLOGICAL Gait normal PSYCHIATRIC Oriented to person, place and time Mood and affect WNL Appearance WNL Speech WNL Thought processes WNL Tobacco/Smoking Status: Tobacco use Status Tobacco use date assessed 06/19/25 06/19/25 08:45 Patient Tobacco Use Status Current everyday Tobacco ( 06/19/25 16:11 Sometimes pt smoke cigarette ) e-Cigarette/Vaping Use Currently Using 06/19/25 16:11 PHQ-9: PHQ-9 Score PHQ-9: Total score 0 06/19/25 16:11 Depression Screening Interpretation: Negative Thrive Assessment: Date of Thrive Assessment Date Thrive assessed 06/19/25 06/19/25 16:11 Coding Level of Care Code New Pt New Pt Level 4 (68275) Patient Type New Diagnoses Primary hypertension I10 Hypertension type: primary hypertension Health care maintenance Z00.00 Obesity (BMI 35.0-39.9 without comorbidity) E66.9 GERD without esophagitis K21.9 Time Spent (min) 30 Comment Time was spent on Chart review, medication reconciliation, H&P, patient education, orders Assessment & Plan Assessment & Plan (1) Hypertension: Comment: BP today was 130/84 Code(s): I10 - Essential (primary) hypertension Category: Medical Qualifiers: Hypertension type: primary hypertension Qualified Code(s): I10 - Essential (primary) hypertension Plan: The patient will continue with lisinopril 10 mg for hypertension management, as blood pressure readings are within acceptable limits. A follow-up appointment is scheduled in three months to reassess blood pressure control and medication efficacy. (2) Health care maintenance: Code(s): Z00.00 - Encounter for general adult medical examination without abnormal findings Category: Medical Plan: Will get labs. Patient scheduled for colonscopy on 07/02 (3) Obesity (BMI 35.0-39.9 without comorbidity): Comment: BMI today 35.7 Code(s): E66.9 - Obesity, unspecified Category: Medical Plan: Discussed the health risks of obesity with the patient. Reviewed benefits of even moderate weight loss with the patient. Patient will gradually try and increase exercise to 30-40 min 5-7 times per week. We discussed the patient adding more fruits and vegetables to their diet. Will monitor weight and follow up in _. (4) GERD without esophagitis: Code(s): K21.9 - Gastro-esophageal reflux disease without esophagitis Category: Medical Plan: The patient will continue taking Prilosec OTC daily for gastroesophageal reflux disease management. Will send Rx. Plan I discussed with the patient the importance of continuing lisinopril 10 mg for hypertension management and the need for regular blood pressure monitoring at home. We also reviewed the plan for the upcoming colonoscopy as part of his preventative care. I advised the patient to follow up in three months to evaluate blood pressure control and medication effectiveness. Orders: Orders Comprehensive Met. Panel 06/19/25 I10 - Essential (primary) hypertension, Z00.00 - Encounter for general adult medical examination without abnormal findings Lipid Panel 06/19/25 Z13.220 - Encounter for screening for lipoid disorders Complete Blood Count no Diff 06/19/25 I10 - Essential (primary) hypertension, Z00.00 - Encounter for general adult medical examination without abnormal findings TSH reflex Free T4 06/19/25 I10 - Essential (primary) hypertension, Z00.00 - Encounter for general adult medical examination without abnormal findings Vitamin D 25-OH Total 06/19/25 Z00.00 - Encounter for general adult medical examination without abnormal findings Medications: New lisinopril 10 mg PO DAILY 90 tabs 1RF for blood pressure omeprazole 20 mg PO DAILY 90 caps 3RF for acid Discontinued lisinopril Discontinued Reason: Change Referral Type 20 mg PO DAILY 30 tabs 0RF Patient Instructions: - Continue taking lisinopril 10 mg daily for blood pressure management. - Monitor blood pressure at home regularly and report any significant changes. - Attend the scheduled colonoscopy for preventative care. - Follow up in three months for reassessment of blood pressure and medication efficacy.
== END 2025-06-19 16:26 | disposition home or self-care (01) ==
LOC: HO.HMCHD 15:48
PROVIDERS: PCP Internal Medicine; Visit Provider Physician Assistant Medical
DX: I10 Essential (primary) hypertension (principal); Z00.00 Encounter for general adult medical examination without abnormal findings; E66.9 Obesity, unspecified; K21.9 Gastro-esophageal reflux disease without esophagitis

== ENCOUNTER 2025-07-02 06:23 | Day surgery (SDC) | payer BC, SELFPAY ==
--- OUTSIDE RECORDS SUMMARY | 2025-06-14 12:53 | XMS_ITS | Patient Health Record ---
Author Organization [facility] Address [address] [place] [address] Care Team Providers Care Languages And Literature Instructor Name Role Phone Rubens Duncan Jr Reason For Referral No Information Plan Of Treatment No Information
[2025-06-28 10:53] VITALS: BMI 34.7
--- NOTE | 2025-06-28 13:29 | HO.ANESPROP2 ---
Documented by User: Brandie Andersen NP 06/28/25 13:30 HPI - Anesthesia Eval Consult details Narrative: 44yo M for Colonoscopy with Polypectomy PMFSH Active Problems Active Problems: All Active Problems GERD without esophagitis (Acute) Obesity (BMI 35.0-39.9 without comorbidity) (Acute) Hypertension (Acute) Health care maintenance (Acute) Colon cancer screening (Acute) Incisional hernia (Acute) Past Medical History Medical History Sleep apnea GERD without esophagitis Obesity (BMI 35.0-39.9 without comorbidity) Hypertension Health care maintenance Colon cancer screening Incisional hernia Diverticulitis Family History Family History Mother No problems noted. Father No problems noted. Family history of problems with anesthesia: No Surgical History Surgical History History of surgery History of incisional hernia repair (~01/20/24) History of colostomy reversal History of Problems with Anesthesia: No Social History Social History Housing: House Alcohol intake: current Alcohol intake frequency: holidays/special occasions only Patient Tobacco Use Status: Never used Tobacco e-Cigarette/Vaping Use: Currently Using Use of substances other than those prescribed or required for medical reasons: No Are you DNR?: No Advance Directives: No Advance Directives Information Provided: Yes Poor oral hygiene: No service: No Current occupational status: employed Cognitive needs: No Hearing needs: No Vision needs: No Meds Allergies Allergy/AdvReac Type Severity Reaction Status Date / Time No Known Allergies (No Known Allergy Verified 06/19/25 08:43 Allergies*) Home Medications ?Medication ?Instructions ?Recorded ?Confirmed ?Last Taken ?Type multivitamin 1 tab PO DAILY 06/19/25 06/28/25 07/01/25 History Exam Height,Weight and Vital Signs: Height 5 ft 10 in Weight 109.769 kg Assessment and Plan Assessment Anesthesia Assessment: Chart Reviewed Final Anesthetic Review Family History of Problems with Anesthesia: No History of Problems with Anesthesia: No Documented by User: Siddhartha Church MD 07/02/25 07:22 PMF Past Medical History Medical History Sleep apnea GERD without esophagitis Obesity (BMI 35.0-39.9 without comorbidity) Hypertension Health care maintenance Colon cancer screening Incisional hernia Diverticulitis Family History Family History Mother No problems noted. Father No problems noted. Surgical History Surgical History History of surgery History of incisional hernia repair (~01/20/24) History of colostomy reversal Social History Social History Housing: House Alcohol intake: current Alcohol intake frequency: holidays/special occasions only Patient Tobacco Use Status: Never used Tobacco e-Cigarette/Vaping Use: Currently Using Use of substances other than those prescribed or required for medical reasons: No Are you DNR?: No Advance Directives: No Advance Directives Information Provided: Yes Poor oral hygiene: No service: No Current occupational status: employed Cognitive needs: No Hearing needs: No Vision needs: No Meds Allergies Allergy/AdvReac Type Severity Reaction Status Date / Time No Known Allergies (No Known Allergy Verified 06/19/25 08:43 Allergies*) Home Medications ?Medication ?Instructions ?Recorded ?Confirmed ?Last Taken ?Type multivitamin 1 tab PO DAILY 06/19/25 06/28/25 07/01/25 History Exam Exam Date and Time: 07/02/2025 Airway Mallampati Class: II TM Dist: >3cm Neck ROM: Full Heart: rrr Lungs: ctab vesicular Assessment and Plan Assessment Anesthesia Assessment: Anesthesia Plan Discussed and PAT Visit Final Anesthetic Review NPO: Yes ASA Class: II Final Preanesthetic Review: No Changes in Pt Med Stat, Meds/Allgs Chart Reviewed, Consent Obtained/Reviewed and Anes Risks/Benef Reviewed Patient Risk: Low Procedure Risk: Low Anesthetic Plan Anesthetic Plan: MAC: Disposition: Standard PACU
[2025-07-02 06:57] VITALS: BMI 35.4
[2025-07-02 07:00] VITALS: BP 130/79; PULSE 64; RESP 16; TEMP 36.1; O2SAT 95
[2025-07-02] MEDS: Lactated Ringers 1,000 ML 100 ML IVCONT (07:11)
--- NOTE | 2025-07-02 07:13 | MHC.SHP ---
Pre-Procedural Eval Section A - 24 Hr Update-Section A only Date of Service: 07/02/25 The patient is an INPATIENT: No Changes since office visit: No Cold of Flu in the past 2 weeks, No New Medical Problems, No Changes in Medication and No Patient answered all questions The patient has been examined within 24 hours of the surgical procedure. The History & Physical has been completed within 30 days and I have reviewed it.: Yes Section B - Complete if H&P > 30 days Chief Complaint: Encounter for screening for malignant neoplasm of Allergies: Allergies Allergy/AdvReac Type Severity Reaction Status Date / Time No Known Allergies (No Known Allergy Verified 06/19/25 08:43 Allergies*) Plan I have reviewed the history and physical and performed a pertinent physical examination on my patient. No changes have occurred unless specified. Time Spent With Patient Time: Total time managing care of this patient today ____ minutes.
--- NOTE | 2025-07-02 08:03 | P.OP_ITS ---
Operative Note Operative Note Date of Service: 07/02/25 Narrative: Preop diagnosis: History of diverticulitis, colon cancer screening Postop diagnosis:1. Occasional diverticuli, left colon 2. Small polyp rectum at level 10 cm, about 3 mm in size Procedure: Colonoscopy, polypectomy with cold forceps x1 Surgeon: Justino Tristan, The patient is a 44 year old male who had he has resection for perforated diverticulitis, here for colonoscopy history of diverticulitis and screening. He understood the technique of the planned procedure as was the risks, benefits, alternatives The patient was brought to the operating room and placed in left lateral decubi tus position under monitored anesthesia care. A surgical time-out was done. A full digital rectal exam was done and this did not reveal any significant anal lesions. The tip of the Olympus colonoscope was gently introduced through the anal orifice advanced with insufflation all the way to the cecum. The cecum was intubated. The cecum was identified by visualization of the ileocecal valve as well as the appendiceal orifice. The cecal mucosa was unremarkable. The scope was gradually withdrawn with careful examination of the entire colonic mucosa being done with scope withdrawal. The patient had adequate bowel prep so it was unlikely that any lesion may have been missed. The rectum was reached and there was a small polyp about 3 mm at level 10 cm. This was removed using multiple bites of the cold forceps. The anal canal was unremarkable. The scope was then withdrawn completely with desufflation The patient tolerated procedure well. There were no immediate complications. Depending on the path report, his next colonoscopy may be in the next ten years.
[2025-07-02 08:04] VITALS: BP 118/74; PULSE 78; RESP 14; TEMP 36.8; O2SAT 94
[2025-07-02 08:19] VITALS: BP 115/74; PULSE 77; RESP 19; TEMP 36.8; O2SAT 94
== END 2025-07-02 08:34 | disposition home or self-care (01) ==
PROVIDERS: PCP Internal Medicine; Visit Provider Surgery
PROC: 0DBE8ZZ Excision of Large Intestine, Via Natural or Artificial Opening Endoscopic (ICD-10-PCS; CPT 45380; principal; 2025-07-02 07:30)
DX: Z12.11 Encounter for screening for malignant neoplasm of colon (principal); K62.1 Rectal polyp; K57.30 Diverticulosis of large intestine without perforation or abscess without bleeding; Z87.19 Personal history of other diseases of the digestive system; E66.9 Obesity, unspecified; Z68.34 Body mass index [BMI] 34.0-34.9, adult; Z79.899 Other long term (current) drug therapy; Z90.49 Acquired absence of other specified parts of digestive tract; Z98.890 Other specified postprocedural states
CPT/HCPCS: 45380; 88305; J2003; J2405; J2704; J3010

== ENCOUNTER → 2025-07-02 06:23 | Outpatient (BNV) | payer BC, SELFPAY | PROVIDERS: PCP Internal Medicine; Visit Provider Surgery | DX: Z12.11 Encounter for screening for malignant neoplasm of colon (principal); K63.5 Polyp of colon; K57.90 Diverticulosis of intestine, part unspecified, without perforation or abscess without bleeding | CPT/HCPCS: 45380 ==

== ENCOUNTER 2025-07-15 09:30 | Outpatient (AMB) | payer BC, SELFPAY ==
--- NOTE | 2025-07-15 09:35 | A.OFFVIS_ITS ---
Vital Signs 07/15/25 09:42 Height 5 ft 10 in Weight 217 lb BMI 31.1 BP 137/88 Blood Pressure Location Rt brachial Position Sitting Pulse 65 Intake Visit Reasons: S/P colonoscopy Intake Note: Patient here s/p colonoscopy on 07-02-2025. Patient c/o: no concerns. Reports normal BM. Denies bleeding. Manager Relocation Required: No Accompanied by: Self / Same As Patient Allergies No Known Allergies (No Known Allergies*) Allergy (Verified 07/15/25 09:41) HPI HPI S/P colonoscopy: Details: Here for colonoscopy results, follow up. No complaints. [facility] Medical History Sleep apnea GERD without esophagitis Obesity (BMI 35.0-39.9 without comorbidity) Hypertension Health care maintenance Colon cancer screening Incisional hernia Diverticulitis Surgical History History of surgery History of incisional hernia repair (~01/20/24) History of colostomy reversal Family History Mother No problems noted. Father No problems noted. Social History Housing: House Alcohol intake: current Alcohol intake frequency: holidays/special occasions only Patient Tobacco Use Status: Never used Tobacco e-Cigarette/Vaping Use: Currently Using service: No Current occupational status: employed Cognitive needs: No Hearing needs: No Vision needs: No Physical Exam Vital Signs: Last Vital Signs Pulse 65 07/15/25 09:42 BP 137/88 07/15/25 09:42 BMI result Body Mass Index 31.1 Const General: comfortable and no acute distress Orientation/consciousness: patient oriented x3 Resp Effort & Inspection: normal respiratory effort and able to speak in complete sentences Neuro General: patient oriented x3 Assessment & Plan Assessment & Plan (1) Colon cancer screening: Code(s): Z12.11 - Encounter for screening for malignant neoplasm of colon Category: Medical Plan 44-year-old male with a history of perforated diverticulitis and colon resection with reversal in 2019 following up for his colonoscopy results. He has no issues at this time. Intraoperative findings significant for occasional diverticula of the left colon, a singular small polyp in the rectum at level 10 cm, about 3 mm in size this was obtained as a sample, sent for pathology, pathology results as follows hyperplastic polyp. The rest of the procedure was unremarkable. Bowel prep was good Per guidelines patient can follow-up for repeat colon cancer screening in 10 years. We will reach out with the patient when he needs series scheduled for his next colonoscopy. He can return with any concerns prior. Coding Level of Care Code Est Pt Level 3 (72767) Diagnoses Colon cancer screening Z12.11
[2025-07-15 09:42] VITALS: BP 137/88; PULSE 65; BMI 31.1
--- OUTSIDE RECORDS SUMMARY | 2025-07-15 10:49 | XMS_ITS | Patient Health Record ---
Author Organization [facility] Address [address] [place] [address] Care Team Providers Care Vice President Lending Name Role Phone Rubens Duncan Jr Reason For Referral No Information Plan Of Treatment No Information
== END 2025-07-15 10:09 | disposition home or self-care (01) ==
LOC: HO.HGS 09:31
PROVIDERS: PCP Internal Medicine
DX: Z12.11 Encounter for screening for malignant neoplasm of colon (principal)
CPT/HCPCS: 99213